=== PATIENT | female | born 1990 | race Caucasian/White ===

== ENCOUNTER 2017-08-02 13:24 | Inpatient (IN) | payer OTHER ==
[~2017-08-02] VITALS: Ht 165.1 cm; Wt 85.3 kg
[~2017-08-02 13:24] MED LIST: PREN1TAB49 PO
[2017-08-02] MEDS ORDERED: LR 1,000 ML IV ONE ×2 (15:32→18:45)
[2017-08-02] MEDS ORDERED: CEFAZOLIN 2 GM IVPB PREMIX 50 ML IV ONE (15:45)
[2017-08-02] MEDS ORDERED: CITRIC ACID/SODIUM CITRATE 30 ML UDC PO ONE (15:45)
[2017-08-02 16:21] LABS: BASOPHILS % (AUTO) 0.5 % (0.0-2.0); EOSINOPHILS % (AUTO) 0.3 % (0.0-4.0); HEMATOCRIT 43.5 % (36-48); HEMOGLOBIN 14.5 g/dL (12.0-16.0); LYMPHOCYTES # (AUTO) 1.6 K/uL (1.0-5.5); LYMPHOCYTES % (AUTO) 17.6 % (20.5-51.5); MEAN CORPUSCULAR HEMOGLOBIN 30 pg (27-31); MEAN CORPUSCULAR HGB CONC 33 % (32-36); MEAN CORPUSCULAR VOLUME 91 fL (79.0-98.0); MONOCYTES # (AUTO) 0.4 K/uL (0.0-1.0); MONOCYTES % (AUTO) 4.8 % (1.7-9.3); NEUTROPHILS # (AUTO) 7.2 K/uL (1.8-7.7); NEUTROPHILS % (AUTO) 76.8 % (40.0-70.0); PLATELET COUNT (AUTO) 193 K/uL (130-430); RED CELL DISTRIBUTION WIDTH 12.4 % (9.0-15.0); WHITE BLOOD COUNT (AUTO) 9.2 K/uL (4.8-10.8)
[2017-08-02 17:24] LABS: BILIRUBIN,URINE NEGATIVE (NEGATIVE); CLARITY/URINE HAZY (CLEAR); COLOR,URINE YELLOW (YELLOW); GLUCOSE,URINE NEGATIVE (NEGATIVE); KETONES,URINE 3+ (NEGATIVE); LEUKOCYTE ESTERASE ,URINE TRACE (NEGATIVE); NITRITE, URINE NEGATIVE (NEGATIVE); PROTEIN URINE NEGATIVE (NEGATIVE); UROBILINOGEN,URINE 0.2 (0.2-1.0)
[2017-08-02 17:25] LABS: BLOOD, URINE TRACE (NEGATIVE)
[2017-08-02 17:29] LABS: BACTERIA,URINE FEW /HPF (None Seen); RBC,URINE 0-3 /HPF (0-3)
[2017-08-02 17:30] LABS: MUCUS,URINE 3+ /LPF (None Seen)
[2017-08-02] MEDS ORDERED: NALBUPHINE HCL 10 MG/ML AMP IVP PRN (18:45)
[2017-08-02] MEDS ORDERED: ONDANSETRON HCL 4 MG/2 ML VIAL IVP PRN ×2 (18:45)
[2017-08-02] MEDS ORDERED: KETOROLAC TROMETHAMINE 30 MG VIAL IM PRN (18:45)
[2017-08-02] MEDS ORDERED: DIPHENHYDRAMINE INJ 50 MG/ML VIAL IVP PRN (18:45)
[2017-08-02] MEDS ORDERED: NALOXONE HCL 0.4 MG/ML AMP (NARCAN) IVP PRN (18:45)
[2017-08-02] MEDS ORDERED: fentaNYL CITRATE/PF 100 MCG/2 ML AMP IVP PRN (18:45)
[2017-08-02] MEDS ORDERED: ePHEDrine sulfate 50 MG/ML VIAL IVP PRN (18:45)
[2017-08-02] MEDS ORDERED: OXYTOCIN/NORMAL SALINE 1,000 ML IV ONE ×2 (19:26→19:51)
[2017-08-02] MEDS ORDERED: LR 1,000 ML IV SCH (19:26)
[2017-08-02] MEDS ORDERED: OXYCODONE/ACETAMINOPHEN 5-325 TABLET PO PRN ×2 (19:30)
[2017-08-02] MEDS ORDERED: SENNOSIDES/DOCUSATE SODIUM 1 TAB TABLET(SENOKOT-S) PO PRN (19:30)
[2017-08-02] MEDS ORDERED: RHO(D) IMMUNE GLOBULIN/MALTOSE 1500 UNITS/1.3 ML (WINHRO) IM PRN (19:30)
[2017-08-02] MEDS ORDERED: BISACODYL 10 MG/SUPPOSITORY RC PRN (19:30)
[2017-08-02] MEDS ORDERED: ACETAMINOPHEN 325 MG TABLET PO PRN (19:30)
[2017-08-02] MEDS ORDERED: MEASLES,MUMPS&RUBELLA VACC/PF 12500 UNIT/0.5 ML VIAL SUBQ PRN (19:30)
[2017-08-02] MEDS ORDERED: ANUSOL 1 EA SUPP.RECT (PREPARATION H) RC PRN (19:30)
[2017-08-02] MEDS ORDERED: LANOLIN 7 GM OINT. TP PRN (19:30)
[2017-08-02] MEDS ORDERED: SIMETHICONE 80 MG TAB.CHEW PO PRN (19:30)
[2017-08-02 20:13] VITALS: BP_SYST 110
[2017-08-02] MEDS ORDERED: TEMAZEPAM 15 MG CAPSULE PO PRN (21:00)
[2017-08-03] MEDS ORDERED: OXYTOCIN/NORMAL SALINE 1,000 ML IV ONE ×2 (05:06→05:08)
[2017-08-03] MEDS: SYNTHROID 75 MCG PO SCH (06:00)
[2017-08-03] MEDS: SYNTHROID 200 MCG PO SCH (06:00)
[2017-08-03 08:22] LABS: BASOPHILS % (AUTO) 0.4 % (0.0-2.0); HEMATOCRIT 33.8 % (36-48); HEMOGLOBIN 11.3 g/dL (12.0-16.0); LYMPHOCYTES # (AUTO) 1.1 K/uL (1.0-5.5); LYMPHOCYTES % (AUTO) 10.8 % (20.5-51.5); MEAN CORPUSCULAR HEMOGLOBIN 30 pg (27-31); MEAN CORPUSCULAR HGB CONC 34 % (32-36); MEAN CORPUSCULAR VOLUME 91 fL (79.0-98.0); MONOCYTES # (AUTO) 0.6 K/uL (0.0-1.0); MONOCYTES % (AUTO) 5.5 % (1.7-9.3); NEUTROPHILS # (AUTO) 8.8 K/uL (1.8-7.7); NEUTROPHILS % (AUTO) 83.3 % (40.0-70.0); PLATELET COUNT (AUTO) 140 K/uL (130-430); RED BLOOD CELL COUNT(AUTO) 3.71 MIL/uL (4.2-6.2); RED CELL DISTRIBUTION WIDTH 12.4 % (9.0-15.0); WHITE BLOOD COUNT (AUTO) 10.5 K/uL (4.8-10.8)
[2017-08-03] MEDS: IBUPROFEN 600 MG TABLET PO SCH ×2 (11:56→18:12)
[2017-08-03] MEDS: DOCUSATE SODIUM 100 MG CAPSULE PO PRN (18:11)
[2017-08-04] MEDS: IBUPROFEN 600 MG TABLET PO SCH ×4 (00:24→17:42)
[2017-08-04] MEDS: SYNTHROID 75 MCG PO SCH (06:10)
[2017-08-04] MEDS: SYNTHROID 200 MCG PO SCH (06:10)
[2017-08-04] MEDS: DOCUSATE SODIUM 100 MG CAPSULE PO PRN (12:00)
[2017-08-05] MEDS: IBUPROFEN 600 MG TABLET PO SCH ×2 (00:21→05:48)
[2017-08-05] MEDS ORDERED: IBUPROFEN 600 MG TABLET ONE ×2 (00:23→05:26)
[2017-08-05] MEDS: SYNTHROID 200 MCG PO SCH (06:10)
[2017-08-05] MEDS: SYNTHROID 75 MCG PO SCH (06:10)
[2017-08-05] MEDS ORDERED: LEVOTHYROXINE SODIUM 0.075 MG TABLET ONE (06:13)
[2017-08-05] MEDS ORDERED: LEVOTHYROXINE SODIUM 0.1 MG TABLET ONE (06:14)
[2017-08-05] MEDS ORDERED: FLU VACC QS 2017-18(36MOS+)/PF 0.5 ML/SYR SYRINGE I.M. PRN (08:30)
== END 2017-08-05 09:45 | disposition home or self-care (01) | DRG 766 ==
LOC: SPU 13:24
PROVIDERS: ADMIT Obstetrics & Gynecology; ATTEND Obstetrics & Gynecology
PROC: 3E0234Z Introduction of Serum, Toxoid and Vaccine into Muscle, Percutaneous Approach (ICD-10-PCS; 2017-08-02)
PROC: 10D00Z1 Extraction of Products of Conception, Low, Open Approach (ICD-10-PCS; principal; 2017-08-02 16:00)
DX: O34.211 Maternal care for low transverse scar from previous cesarean delivery (principal); M41.9 Scoliosis, unspecified; O99.89 Other specified diseases and conditions complicating pregnancy, childbirth and the puerperium; E03.9 Hypothyroidism, unspecified; O99.824 Streptococcus B carrier state complicating childbirth; O99.284 Endocrine, nutritional and metabolic diseases complicating childbirth; Z53.20 Procedure and treatment not carried out because of patient's decision for unspecified reasons; Z37.0 Single live birth; Z3A.38 38 weeks gestation of pregnancy; Z23 Encounter for immunization
CPT/HCPCS: 36415; 81000-TC; 85025; 86592; 86886; 86900; 86901; 87086; 94760; J0690; J2590; J7120; Q2037